=== PATIENT | male | born 1975 | race Caucasian/White ===

== ENCOUNTER → 2024-03-02 | Outpatient (CLI) | payer BC, SELFPAY ==
[2024-03-02 10:17] LABS: Basophils # (Auto) 0.1 Thou/mm3 (0.0-0.2); Basophils % (Auto) 1 % (0-2.5); Eosinophils # (Auto) 0.2 Thou/mm3 (0.0-0.5); Eosinophils % (Auto) 2 % (0-10); Hematocrit 34.9 % (41.0-53.0); Hemoglobin 10.5 g/dL (13.5-16.0); Immature Granulocytes % (Auto) 1 % (0-0); Immature Granulocytes Auto 0.06 Thou/mm3 (0.00-0.00); Lymphocytes # (Auto) 1.8 Thou/mm3 (1.0-4.8); Lymphocytes % (Auto) 16 % (10-50); Mean Corpuscular HGB Conc 30.1 g/dl (31.0-37.0); Mean Corpuscular Hemoglobin 23.5 pg (25.0-35.0); Mean Corpuscular Volume 78 fL (80-100); Monocytes # (Auto) 1.2 Thou/mm3 (0.0-0.8); Monocytes % (Auto) 11 % (0-12); Neutrophils # (Auto) 7.6 Thou/mm3 (1.8-7.7); Neutrophils % (Auto) 69 % (37-80); Nucleated Red Blood Cell % 0 /100 WBC (0); Platelet Count 558 Thou/mm3 (140-440); RDW Standard Deviation 56.8 fL (35.1-43.9); Red Blood Count 4.46 Miln/mm3 (4.50-5.90); White Blood Count 10.9 Thou/mm3 (3.8-10.6)
[2024-03-02 10:34] LABS: Glucose Estimated Average 108 mg/dL (80-131); Hemoglobin A1C 5.4 % Hgb (4.8-6.0)
[2024-03-02 10:36] LABS: Sed Rate (ESR) 22 mm/hr (0-15)
[2024-03-02 10:43] LABS: Alanine Aminotransferase 24 U/L (10-49); Albumin, Serum 4.4 gm/dL (3.5-5.0); Albumin/Globulin Ratio 1.8 (1.2-2.2); Alkaline Phosphatase 98 U/L (46-116); Anion Gap 6 (7-16); Aspartate Amino Transferase 14 U/L (0-34); BUN/Creatinine Ratio 12 Ratio (12-20); Bilirubin,Total 0.5 mg/dL (0.3-1.2); Blood Urea Nitrogen 13 mg/dL (9-23); Calcium 9.4 mg/dL (8.3-10.6); Calcium (Corrected) 9.4 mg/dL (8.5-10.1); Carbon Dioxide 35.4 mMol/L (20.0-31.0); Cardiac Risk Estimate 2.4 RATIO (4.0-6.7); Chloride 99 mMol/L (98-107); Cholesterol 147 mg/dL (132-200); Creatinine (Component) 1.1 mg/dL (0.6-1.3); Free T4 (Free Thyroxine) 0.97 ng/dL (0.89-1.76); Globulin 2.5 gm/dL (2.3-3.5); Glucose 111 mg/dL (74-106); HDL Cholesterol 62 mg/dL (40-60); LDL Cholesterol,Calculated 71 mg/dL (0-130); Osmolality,Calculated 280 (275-295); Potassium 4.4 mMol/L (3.4-5.1); Sodium 140 mMol/L (136-145); Thyroid Stimulating Hormone 3.35 uIU/mL (0.55-4.78); Total Protein 6.9 gm/dL (5.7-8.2); Triglycerides 70 mg/dL (30-150); eGFR > 60 See Note
[2024-03-02 10:49] LABS: Collection Type, Urine Clean Catch; Squamous Epithelial Cell,Urine 0 /hpf (0-5)
[2024-03-02 11:28] LABS: Bilirubin,Urine Negative (Negative); Blood,Urine Negative (Negative); Clarity,Urine Clear (Clear/Hazy); Color,Urine Lt-Yellow (Lt Yel-Yel); Glucose, Urine Negative (Negative); Ketones,Urine Negative (Negative); Leukocyte Esterase,Urine Negative (Negative); Nitrite,Urine Negative (Negative); Protein,Urine Negative (Neg - Trace); RBC,Urine 1 /hpf (0-3); Urobilinogen,Urine Negative mg/dL (0.0-1.0); WBC,Urine < 1 /hpf (0-5)
== END | disposition home or self-care (01) ==
LOC: COPL 09:24
PROVIDERS: PCP Family Medicine; Referring Provider Family Medicine; Visit Provider Family Medicine
DX: E11.65 Type 2 diabetes mellitus with hyperglycemia (principal); Z12.5 Encounter for screening for malignant neoplasm of prostate; I25.10 Atherosclerotic heart disease of native coronary artery without angina pectoris
CPT/HCPCS: 36415; 80053; 80061; 81001; 83036; 84153; 84439; 84443; 85025; 85652

== ENCOUNTER → 2024-03-23 | Outpatient (CLI) | payer BC, SELFPAY ==
[2024-03-23 13:06] LABS: Glucose Estimated Average 108 mg/dL (80-131); Hemoglobin A1C 5.4 % Hgb (4.8-6.0)
[2024-03-23 13:12] LABS: Ammonia 22 uMol/L (11-32)
[2024-03-23 13:19] LABS: Alanine Aminotransferase 115 U/L (10-49); Albumin, Serum 4.4 gm/dL (3.5-5.0); Alkaline Phosphatase 110 U/L (46-116); Aspartate Amino Transferase 81 U/L (0-34); Bilirubin,Direct 0.2 mg/dL (0.0-0.3); Bilirubin,Total 0.4 mg/dL (0.3-1.2); Total Protein 7.1 gm/dL (5.7-8.2); Uric Acid 7.6 mg/dL (3.7-9.2)
== END | disposition home or self-care (01) ==
LOC: COPL 12:16
PROVIDERS: PCP Family Medicine; Referring Provider Family Medicine; Visit Provider Family Medicine
DX: E11.65 Type 2 diabetes mellitus with hyperglycemia (principal)
CPT/HCPCS: 36415; 80076; 82140; 83036; 84550

== ENCOUNTER → 2024-03-26 | Outpatient (CLI) | payer BC, SELFPAY ==
--- NOTE | 2024-03-26 13:00 | XR_ITS ---
Examination: Bone densitometry Date and time of exam:March 26, 2024 1324 hours INDICATIONS: 48-year-old male with gastric bypass, family history osteoporosis Technique: Lumbar spine and hip total bone mineralization values of an calculated. Peak reference and age match control results have been displayed. Findings: Lumbar spine total bone mineralization is0.935 gm/cm2. This is 1.4 standard deviations below peak reference. This is 1.1 standard deviations below age-matched controls. Hip total bone mineralization is 0.978 gm/cm2 This is 0.4 standard deviations below peak reference. This is 0.1 standard deviations below age-matched controls Impression: There is osteopenia based on lumbar spine measurements. There is osteopenia based on hip measurements
== END | disposition home or self-care (01) ==
LOC: CDIM 12:57
PROVIDERS: PCP Family Medicine; Referring Provider Family Medicine; Visit Provider Family Medicine
DX: M85.89 Other specified disorders of bone density and structure, multiple sites (principal)
CPT/HCPCS: 77080

== ENCOUNTER → 2024-05-11 | Outpatient (CLI) | payer OTHER, SELFPAY ==
--- NOTE | 2024-05-11 08:00 | XR_ITS ---
Examination: MRI lumbar spine without contrast Date and time of exam: May 11, 2024 0822 hours INDICATIONS: Low back pain radiating to legs post injury 2 years ago Technique: Multiple MRI axial and sagittal sections lumbar spine. Sagittal T2-weighted images, TR 3500, TE 118 T1 weighted transverse sections, TR 688 T8.5, T2-weighted sagittal sections T1 weighted sagittal sections TR 621, TE 30 T2 axial sections, TR 4, 190, TE 84. Findings: No lumbar fracture Grade 1 spondylolisthesis L5 on S1 Advanced degenerative disc disease L5-S1 L5-S1 4 mm central lumbar disc bulge extending to the foraminal regions with mild right L5 ganglionic compression L4-L5 no disc protrusion L3-L4 no disc protrusion L2-L3 no disc protrusion L1-L2 no disc protrusion IMPRESSION: Grade 1 spondylolisthesis L5 on S1 Advanced degenerative disc disease L5-S1 L5-S1 4 mm central lumbar disc bulge extending to the right intervertebral foramen with mild right L5 ganglionic compression
== END | disposition home or self-care (01) ==
PROVIDERS: Referring Provider Orthopaedic Surgery Orthopaedic Surgery of the Spine; Visit Provider Orthopaedic Surgery Orthopaedic Surgery of the Spine
DX: M43.17 Spondylolisthesis, lumbosacral region (principal); M51.379 Other intervertebral disc degeneration, lumbosacral region without mention of lumbar back pain or lower extremity pain; G95.20 Unspecified cord compression
CPT/HCPCS: 72148

== ENCOUNTER → 2024-05-20 | Outpatient (CLI) | payer BC, SELFPAY ==
[2024-05-20 11:18] LABS: Ammonia 14 uMol/L (11-32)
== END | disposition home or self-care (01) ==
LOC: COPL 10:15
PROVIDERS: PCP Family Medicine; Referring Provider Family Medicine; Visit Provider Family Medicine
DX: Z01.89 Encounter for other specified special examinations (principal)
CPT/HCPCS: 36415; 82140

== ENCOUNTER → 2024-07-20 | Outpatient (CLI) | payer BC, SELFPAY ==
[2024-07-20 13:20] LABS: Basophils # (Auto) 0.1 Thou/mm3 (0.0-0.2); Basophils % (Auto) 1 % (0-2.5); Eosinophils # (Auto) 0.5 Thou/mm3 (0.0-0.5); Eosinophils % (Auto) 3 % (0-10); Hematocrit 38.3 % (41.0-53.0); Hemoglobin 11.5 g/dL (13.5-16.0); Immature Granulocytes % (Auto) 1 % (0-0); Immature Granulocytes Auto 0.09 Thou/mm3 (0.00-0.00); Lymphocytes # (Auto) 2.3 Thou/mm3 (1.0-4.8); Lymphocytes % (Auto) 17 % (10-50); Mean Corpuscular Hemoglobin 22.4 pg (25.0-35.0); Mean Corpuscular Volume 75 fL (80-100); Monocytes % (Auto) 8 % (0-12); Neutrophils # (Auto) 9.7 Thou/mm3 (1.8-7.7); Neutrophils % (Auto) 71 % (37-80); Nucleated Red Blood Cell % 0 /100 WBC (0); Platelet Count 487 Thou/mm3 (140-440); RDW Standard Deviation 60.6 fL (35.1-43.9); Red Blood Count 5.13 Miln/mm3 (4.50-5.90); White Blood Count 13.6 Thou/mm3 (3.8-10.6)
[2024-07-20 13:31] LABS: Iron 18 mcg/dL (65-175); Percent Iron Saturation 4 % (20-55); Total Iron Binding Capacity 363 mcg/dL (250-425); Unsaturated Iron Binding 345 (225-295)
[2024-07-20 13:34] LABS: Anion Gap 8 (7-16); BUN/Creatinine Ratio 12 Ratio (12-20); Blood Urea Nitrogen 11 mg/dL (9-23); Calcium 8.8 mg/dL (8.3-10.6); Carbon Dioxide 30.7 mMol/L (20.0-31.0); Chloride 106 mMol/L (98-107); Creatinine (Component) 0.9 mg/dL (0.6-1.3); Digoxin 0.7 ng/mL (0.8-2.0); Glucose 101 mg/dL (74-106); Osmolality,Calculated 288 (275-295); Sodium 145 mMol/L (136-145); eGFR > 60 See Note
== END | disposition home or self-care (01) ==
LOC: COPL 12:20
PROVIDERS: PCP Family Medicine; Referring Provider Family Medicine; Visit Provider Internal Medicine Cardiovascular Disease
DX: E11.65 Type 2 diabetes mellitus with hyperglycemia (principal); I48.0 Paroxysmal atrial fibrillation; Z79.01 Long term (current) use of anticoagulants; Z86.2 Personal history of diseases of the blood and blood-forming organs and certain disorders involving the immune mechanism; Z86.79 Personal history of other diseases of the circulatory system; Z87.898 Personal history of other specified conditions
CPT/HCPCS: 36415; 80048; 80162; 83540; 83550; 85025

== ENCOUNTER → 2025-01-14 | Outpatient (CLI) | payer BC, SELFPAY ==
[2025-01-14 13:26] LABS: Basophils # (Auto) 0.1 Thou/mm3 (0.0-0.2); Basophils % (Auto) 1 % (0-2.5); Eosinophils # (Auto) 0.2 Thou/mm3 (0.0-0.5); Eosinophils % (Auto) 1 % (0-10); Hematocrit 45.9 % (41.0-53.0); Hemoglobin 14.8 g/dL (13.5-16.0); Immature Granulocytes Auto 0.04 Thou/mm3 (0.00-0.00); Lymphocytes # (Auto) 1.8 Thou/mm3 (1.0-4.8); Lymphocytes % (Auto) 16 % (10-50); Mean Corpuscular HGB Conc 32.2 g/dl (31.0-37.0); Mean Corpuscular Hemoglobin 27.7 pg (25.0-35.0); Mean Corpuscular Volume 86 fL (80-100); Monocytes # (Auto) 1.0 Thou/mm3 (0.0-0.8); Monocytes % (Auto) 9 % (0-12); Neutrophils # (Auto) 7.9 Thou/mm3 (1.8-7.7); Neutrophils % (Auto) 71 % (37-80); Nucleated Red Blood Cell # 0.00 Thou/mm3 (0.00-0.00); Nucleated Red Blood Cell % 0 /100 WBC (0); Platelet Count 383 Thou/mm3 (140-440); RDW Standard Deviation 51.7 fL (35.1-43.9); Red Blood Count 5.34 Miln/mm3 (4.50-5.90); White Blood Count 11.0 Thou/mm3 (3.8-10.6)
[2025-01-14 13:51] LABS: Iron 97 mcg/dL (65-175); Percent Iron Saturation 26 % (20-55); Total Iron Binding Capacity 365 mcg/dL (250-425); Unsaturated Iron Binding 268 (225-295)
== END | disposition home or self-care (01) ==
LOC: COPL 12:09
PROVIDERS: PCP Family Medicine; Referring Provider Internal Medicine Cardiovascular Disease; Visit Provider Internal Medicine Cardiovascular Disease
DX: Z86.2 Personal history of diseases of the blood and blood-forming organs and certain disorders involving the immune mechanism (principal); Z86.79 Personal history of other diseases of the circulatory system; Z92.89 Personal history of other medical treatment
CPT/HCPCS: 36415; 83540; 83550; 85025